=== PATIENT | male | born 2005 | race Two or more races ===

== ENCOUNTER 2023-09-20 22:42 | Emergency (ER) | payer OTHER, SELFPAY ==
[2023-09-20 22:47] VITALS: BP 132/74; PULSE 75; RESP 18; TEMP 36.7; O2SAT 99; BMI 27.1
--- NOTE | 2023-09-20 23:19 | ED.GENADULT ---
HPI - General Adult General Chief complaint: Extremity Pain/Injury, Lower Stated complaint: right toe pain Time Seen by Provider: 09/20/23 22:49 History of Present Illness HPI narrative: Patient is a 17-year-old gentleman who presents with pain and swelling over the 2nd digit of the right lower extremity. Patient has known onchyomycosis of both digits 1 in to when the right foot. Symptoms have been present for last 1-2 days. He has moderate pain mild redness and swelling. No signs of systemic infection no fevers chills night sweats cough shortness of breath orthopnea PND. He has pain when he places pressure on his foot. Related Data Home Medications Medication Instructions Recorded Confirmed No Known Home Medications 09/20/23 09/20/23 Allergies Allergy/AdvReac Type Severity Reaction Status Date / Time No Known Drug Allergies Allergy Verified 09/20/23 22:49 Review of Systems Status of ROS: Reports: 10 or more systems reviewed and unremarkable except as noted in History and below Exam Narrative: Exam Narrative: EXAM GENERAL: Patient appears comfortable and well. EYES: No scleral icterus. ENT: Tympanic membranes and oropharynx normal. THYROID: no thyroid nodules or thyromegaly. LYMPH: No supraclavicular or cervical lymphadenopathy. SKIN: Visible skin seen during exam normal or with benign process only. EXT: Fungal infection noted digits 1 and 2 right lower extremity with swelling induration and redness of the 2nd digit right foot. HEART: Regular rate and rhythm with no murmurs, rubs, or gallops. LUNGS: Clear to auscultation bilaterally with no crackles or wheezes. ABD: Soft, non tender, non distended. PSYCH: Good eye contact, speech is not pressured. Const: Vital Signs, click to edit/add: Vital Signs - 24 hr 09/20/23 22:47 Temperature 98.0 F Pulse Rate [Right Pulse Oximeter] 75 Respiratory Rate 18 Blood Pressure [Ri ght Upper Arm] 132/74 Pulse Oximetry 99 Oxygen Delivery Me thod Room Air Course Course ED Course: Patient seen and examined. Vital Signs Vital signs: Initial Vital Signs Temperature 98.0 F 09/20/23 22:47 Temperature Source Temporal Artery Scan 09/20/23 22:47 Pulse Rate 75 09/20/23 22:47 Respiratory Rate 18 09/20/23 22:47 Blood Pressure 132/74 09/20/23 22:47 Blood Pressure Mean 93 09/20/23 22:47 Blood Pressure Position Sitting 09/20/23 22:47 Pulse Oximetry 99 09/20/23 22:47 Oxygen Delivery Method Room Air 09/20/23 22:47 Vital Signs Temperature 98.0 F 09/20/23 22:47 Pulse Rate 75 09/20/23 22:47 Respiratory Rate 18 09/20/23 22:47 Blood Pressure 132/74 09/20/23 22:47 Pulse Oximetry 99 09/20/23 22:47 Oxygen Delivery Method Room Air 09/20/23 22:47 Temperature 98.0 F 09/20/23 22:47 Pulse Rate 75 09/20/23 22:47 Respiratory Rate 18 09/20/23 22:47 Blood Pressure 132/74 09/20/23 22:47 Pulse Oximetry 99 09/20/23 22:47 Oxygen Delivery Method Room Air 09/20/23 22:47 Medical Decision Making MDM Narrative Medical decision making narrative: Patient has a known history of onchyomycosis of his nails and now has a secondary cellulitis. His no signs of systemic infection. I did recommend symptomatic treatment as well as Augmentin is there is no Keflex in the dispensary. I also recommend outpatient follow-up with me so we can treat his uncle mycosis. Differential Diagnosis Differential Diagnosis: Cellulitis gout injury paronychia Discharge Plan Discharge Clinical Impression: Cellulitis Patient Disposition: Home, Self-Care Condition: Stable Instructions: Cellulitis (ED) Additional Instructions: Augmentin as directed Tylenol Motrin Leg elevation while at rest Follow-up as discussed. Activity Level: No Restrictions Discharge Diet: Regular Prescriptions: No Action No Known Home Medications Follow Up/Referrals: Filippo Partida MD [Primary Care Provider] - Stand Alone Forms: [employer] Info Instructions
[2023-09-20 23:26] VITALS: BP 128/70; PULSE 79; RESP 18; TEMP 36.7; O2SAT 99
[2023-09-20 23:34] VITALS: BP 128/70; PULSE 79; RESP 18; TEMP 36.7
== END 2023-09-20 23:34 | disposition home or self-care (01) ==
LOC: ED 23:33
PROVIDERS: Emergency Provider Internal Medicine
DX: L03.115 Cellulitis of right lower limb (principal)
CPT/HCPCS: 99283

== ENCOUNTER 2024-03-18 10:51 | Outpatient (CLI) | payer OTHER, SELFPAY | END 2024-03-18 10:52 | disposition home or self-care (01) | PROVIDERS: Visit Provider Registered Nurse | DX: R10.9 Unspecified abdominal pain (principal) | CPT/HCPCS: 80053; 83690; 87086 ==